=== PATIENT | female | born 1985 ===

== ENCOUNTER → 2018-03-22 | Outpatient (CLI) | payer OTHER ==
--- NOTE | 2018-03-22 08:42 | RADIOLOGY IMAGING REPORT ---
FACILITY: [facility] PATIENT NAME: Lulu Lin : 1985 MR: [id number] V: [id number] EXAM DATE: ORDERING PHYSICIAN: BARBIE MEZA TECHNOLOGIST: Location: [facility] - [place] Patient: Lulu Lin : 1985 Visit/Account:[id number] Date of Sevice: 03/22/2018 ABD SINGLE ORGAN/QUAD/FOLLOWUP HISTORY: Atypical umbilical bulge COMPARISON: None. FINDINGS: By history the patient is at her 26 week gestation. There are two hypoechoic masses projecting from the anterior aspect of the of the uterus one measuring 4.2 x 3.2 x 5.3 cm which appears to represent a fibroid which projects anteriorly to within 2.3 mm of the skin surface. The second is just to the left midline measuring 3 x 2.2 x 2.8 cm. The second has two central hypoechoic regions which may be cystic. IMPRESSION: Two hypoechoic masses project anteriorly from the uterus one to the right of the umbilicus measuring up to 5.3 cm and one to the left measuring up to 3 cm likely representing fibroids. Report Dictated By: Luba Solomon MD at 03/22/2018 8:30 AM Report E-Signed By: Luba Solomon MD at 03/22/2018 8:38 AM WSN:NARINDER
== END ==
LOC: US 06:56
PROVIDERS: ATTEND Surgery
DX: D25.9 Leiomyoma of uterus, unspecified (principal); Z3A.26 26 weeks gestation of pregnancy
CPT/HCPCS: 76705

== ENCOUNTER 2018-06-05 01:47 | Inpatient (IN) | payer OTHER ==
[~2018-06-05] VITALS: Ht 162.6 cm; Wt 74.8 kg
[2018-06-05] VITALS (15 sets, daily range): BP systolic 99–137; BP diastolic 42–83; Ht 162.6 cm; Wt 74.8 kg
--- NOTE | 2018-06-05 03:48 | History & Physical ---
History of Present Illness EDC per LMP: Jun 26, 2018 Estimated Gestational Age: 37.0 Chief Complaint Contractions History of Present Illness 32yo at 37w0d presents for contraction pain. She reports UCx started 06/04/18 in the afternoon and worsening since 0100 today. She denies LOF/VB. +FM. No preeclampsia symptoms. PNR reviewed. c/b uterine fibroid. PNC by [facility]. History Patient's Blood Type: B Positive Rubella Status: Immune Group B Strep Screen: Negative Obstetrical History: G1: SAB G2: Current Past Medical History: PMH: None PSH: None Allergies: Coded Allergies: No Known Drug Allergies (Unverified , 06/05/18) Social History: No T/E/D. Med Rec Home Meds No Active Prescriptions or Reported Meds Review of Systems Constitutional: No Fever Neurological: No Syncope Eyes: No Vision Change ENT: No Hearing Loss Cardiovascular: No Chest Pain Respiratory: No Shortness of Breath Gastrointestinal: No Nausea, No Vomiting, No Diarrhea Genitourinary: No Dysuria Musculoskeletal: No Pain Psychiatric: No Depression, No Anxiety Exam General Exam Vital Signs VS reviewed General Apperance: Alert/Awake/No Acute Distress Neuro: No Gross deficits Eyes: Normal Extraocular Movement & Vison Cardiovascular: Regular Rate and Rhythm Respiratory: No Respiratory Distress, Clear to Auscultation Abdomen: Gravid - Non-Tender Musculoskeletal: No Weakness/Pain Extremities: No Cyanosis,Clubbing or Edema Integumentary: Skin Intact without Lesions or Rash Psychological: Alert & Oriented X3, Appropriate Mood & Affect Cervical Dialation: 2 Cervical Effacement (%): 50 Cervical Consistency: Moderate Cervical Position: Posterior Station: -1 Presentation: Vertex Uterine Contractions(Q min): 2 Uterine Contraction Strength: Strong UC Resting Tone: Soft Fetus Feeling Movement?: Yes FHT Category: I Assessment and Plan Problems: (1) Uterine contractions during Assessment & Plan: 32yo at 37w0d presents with UCx. Upon admission, her contractions are every 3-4 minutes. Unsure if this is labor or not, but will monitor for cervical change. (2) Uterine fibroid during , antepartum Assessment & Plan: 4cm at last look according to record. (3) 37 weeks gestation of ERNA BIRMINGHAM MD Jun 05, 2018 03:48
[2018-06-05] MEDS ORDERED: ceFAZolin(*) 2GM/D5W 50ML 50 ML IVPB ONE (07:02)
[2018-06-05] MEDS ORDERED: LIDOCAINE/SOD BICARB 8.4% SYR ONE (07:02)
[2018-06-05] MEDS ORDERED: LR(*) 1000 ML BAG 1,000 ML IV SCH (07:02)
[2018-06-05] MEDS ORDERED: METOCLOPRAMIDE 10 MG/2 ML SDV IVP ONE (07:05)
[2018-06-05] MEDS ORDERED: FAMOTIDINE 20 MG/50 ML PREMIX IVPB ONE (07:05)
[2018-06-05] MEDS ORDERED: CITRIC ACID/SOD CITRATE 30 ML PO ONE (07:05)
[2018-06-05] MEDS ORDERED: MORPHINE PF 5 MG/10 ML AMP ONE (07:18)
[2018-06-05] MEDS ORDERED: fentaNYL CITR 100 MCG/2 ML AMP ONE (07:18)
[2018-06-05 07:21] LABS: PLATELET COUNT, AUTOMATED 199 K/uL (150-450)
[2018-06-05] MEDS ORDERED: DEXAMETHASONE SOD 4 MG/ML VIAL ONE ×2 (07:23→07:24)
[2018-06-05] MEDS ORDERED: OXYTOCIN 10 UNIT/ML SDV ONE ×4 (07:23)
[2018-06-05] MEDS ORDERED: NS 0.9% 20 ML SDV 20 ML ONE ×2 (07:28)
[2018-06-05] MEDS ORDERED: ONDANSETRON 4 MG/2 ML VIAL ONE (07:30)
--- NOTE | 2018-06-05 07:34 | Labor Progress Note ---
Labor Subjective Progress Notes Subjective She is still having painful contractions. Labor Objective Vital Signs VS reviewed Cervical Dialation: 4 Fetus FHT Category: I General Exam General Appearance: Alert/Awake/No Acute Distress Abdomen: Gravid - Non-Tender Psychological: Alert & Oriented X3, Appropriate Mood & Affect Other Result Diagram: 06/05/18 0715 Assessment and Plan Problems: (1) Breech presentation Assessment & Plan: Pt changed her cervix with 4cm. Exam revealed -3 station. Ultrasound reveals breech presentation. Recommended delivery. We discussed R/B/A with the patient. Her questions were addressed. Will proceed to the OR. Ancef preoperatively. (2) Uterine fibroid during , antepartum Assessment & Plan: 4cm at last look according to record. (3) 37 weeks gestation of Problem Qualifiers (1) Breech presentation: Fetus number: single or unspecified fetus Qualified Codes: O32.1XX0 - Maternal care for breech presentation, not applicable or unspecified ERNA BIRMINGHAM MD Jun 05, 2018 07:34
--- NOTE | 2018-06-05 08:52 | Post Operative Note ---
Operative Note - [employer] Operative Day Date: Jun 05, 2018 Physicians Surgeon: Ankur Anesthesia: Spinal, Ed Eufemia Diagnosis Pre-Op Diagnosis: IUP at 37wks in spontaneous labor with breech presentation Post-Op Diagnosis: Same Female at 0817hrs, 2472g (5#7.2oz), Apgars 8/9 Procedure Findings: 5cm pedunculated fibroid on anterior fundal wall Procedure(s): PLTCD Fluids Fluids: IVF: 1700cc UOP: 750cc Estimated Blood Loss: 500cc ERNA BIRMINGHAM MD Jun 05, 2018 08:52
[2018-06-05] MEDS ORDERED: OXYTOCIN 30 UNIT/LR 500 ML 500 ML IV PRN (08:58)
[2018-06-05] MEDS ORDERED: MAGNESIUM HYDROXIDE* 30ML UDCP PO PRN (09:00)
[2018-06-05] MEDS: FAMOTIDINE 20 MG TAB PO SCH ×2 (09:00→21:48)
[2018-06-05] MEDS ORDERED: ACETAMINOPHEN 325 MG TAB PO PRN (09:00)
[2018-06-05] MEDS ORDERED: LANOLIN OINT 7 GM TUBE TP PRN (09:00)
[2018-06-05] MEDS ORDERED: SIMETHICONE 80 MG CHEW CHEW PRN (09:00)
[2018-06-05] MEDS ORDERED: INFLUENZA VIRUS VAC 0.5ML SYR IM ONE (09:00)
[2018-06-05] MEDS: DOCUSATE CALCIUM 240 MG CAP PO SCH ×2 (09:00→21:48)
[2018-06-05] MEDS ORDERED: PROMETHAZINE 25 MG/ML 1 ML AMP IVP PRN (09:00)
[2018-06-05] MEDS ORDERED: IBUP800T37 PO (09:01)
[2018-06-05] MEDS ORDERED: OXYC-865 PO (09:01)
[2018-06-05] MEDS: ONDANSETRON 4 MG/2 ML VIAL IV PRN ×2 (09:26→15:57)
[2018-06-05] MEDS: KETOROLAC 30 MG/ML VIAL IVP SCH ×3 (09:26→21:48)
--- NOTE | 2018-06-05 09:29 | Anesthesia OB Pre-Anes Eval ---
History of Present Illness EDC: Jun 26, 2018 : 2 Para: 0 Result Diagram: 06/05/18 0715 Height (Inches): 64.00 Weight (Pounds): 165 BMI Calculated: 28.32 Past Medical History Medical History: no pertinent history Surgical History: no surgical history Attended Childbirth Classes?: No Hx Anesthesia Reactions: No Hx Family Anesthesia Reaction: No Home Meds Active Scripts Oxycodone Hcl/Acetaminophen (PERCOCET 5-325 MG TABLET) 1 Each Tablet, 1 TAB PO Q4-6H PRN for pain, #30 TAB 0 Refills Prov:ERNA BIRMINGHAM MD 06/05/18 Allergies: Coded Allergies: No Known Drug Allergies (Unverified , 06/05/18) Anesthesia OB ROS Eyes ROS: other (did not ask) Airway Class: ll GI ROS: clear liquids ASA Classification: 2, E Assessment and Plan Anesthesia Plan: SAB Assessment: spinal explained, risks and complications discussed. permit signed. questions invited Anesthesia Stop Day: Jun 05, 2018 Anesthesia Stop Time: 08:55 Condition n/v in pacu. Zofran repeated. bp stable. no other problems noted. ERIKA GARCIA CRNA Jun 05, 2018 09:29
[2018-06-05] MEDS ORDERED: NALBUPHINE HCL 10 MG/ML AMP IVP PRN (10:30)
[2018-06-05] MEDS: DLR(*) 1000 ML BAG 1,000 ML IV PRN ×2 (10:54→17:15)
[2018-06-06] VITALS: BP 107/61
[2018-06-06] MEDS: DLR(*) 1000 ML BAG 1,000 ML IV PRN (01:03)
[2018-06-06] MEDS: IBUPROFEN 800 MG TAB PO SCH ×3 (03:44→19:48)
[2018-06-06 03:46] VITALS: BP 118/64
[2018-06-06 06:04] LABS: PLATELET COUNT, AUTOMATED 180 K/uL (150-450)
[2018-06-06 08:20] VITALS: BP 110/65
[2018-06-06] MEDS: FAMOTIDINE 20 MG TAB PO SCH ×2 (08:22→20:44)
[2018-06-06] MEDS: DOCUSATE CALCIUM 240 MG CAP PO SCH ×2 (08:22→20:44)
[2018-06-06] MEDS ORDERED: MEASLES,MUMP,RUBELLA VAC 0.5ML SUBQ ONE (09:00)
[2018-06-06] MEDS ORDERED: DIPHTH/TETANUS/ACEL. PERTUSSIS IM ONLY ONE (09:00)
--- NOTE | 2018-06-06 09:07 | OB/GYN Progress Note ---
OB Subjective Progress Notes Subjective Doing well. Ambulating and voiding well. Pain well controlled. Bleeding light. Has not been up to the shower yet. GI: NEG Nausea : Voiding Well Pain: Mild OB Objective Physical Exam Vital Signs Date Time Temp Pulse Resp B/P (MAP) Pulse Ox O2 Delivery O2 Flow Rate FiO2 06/06/18 08:20 99.2 104 16 110/65 (80) 96 Room Air Intake and Output 06/06/18 07:00 Intake Total 5520 ml Output Total 2025 ml Balance 3495 ml Intake Oral 640 ml IV Total 4880 ml Output Urine Total 1525 ml Estimated Blood Loss 500 ml General Appearance: Alert/Awake/No Acute Distress Neurological: No Gross deficits Eyes: Normal Extraocular Movement & Vison Cardiovascular: Normal Rhythm & Peripheral Pulses Respiratory: No Respiratory Distress Abdomen: Soft, Non-Tender, Non-Distended, Fundus Firm, Non-Tender Incision: Clean, Dry, Intact, Dressing (removed) Extremities: No Cyanosis,Clubbing or Edema Integumentary: Skin Intact without Lesions or Rash Psychological: Alert & Oriented X3, Appropriate Mood & Affect Result Diagram: 06/06/18 0554 Assessment and 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
--- NOTE | 2018-06-06 14:19 | Anesthesia Post Eval Note ---
Anesthesia Post Eval Note stable. Pt able to participate in Eval: Yes Cardiovascular Status: Satisfactory Respiratory Status: Satisfactory Pain Managment: Satisfactory PO Nausea/Vomiting: Satisfactory Mental Status: Satisfactory Post-Op Hydration Status: Satisfactory Anesthesia Type: SAB Anesthesia Tolerance: n/v earlier has now subsided. no further problems noted. this eval was done on 06/05/2018 at 1905hrs. ERIKA GARCIA CRNA Jun 06, 2018 14:19
[2018-06-06 16:50] VITALS: BP 118/69
[2018-06-06 19:30] VITALS: BP 106/62
[2018-06-06 23:00] VITALS: BP 110/72
[2018-06-07 03:05] VITALS: BP 104/56
[2018-06-07] MEDS: IBUPROFEN 800 MG TAB PO SCH ×2 (04:22→12:30)
[2018-06-07] MEDS: FAMOTIDINE 20 MG TAB PO SCH (09:27)
[2018-06-07] MEDS: DOCUSATE CALCIUM 240 MG CAP PO SCH (09:27)
[2018-06-07 09:30] VITALS: BP 110/66
--- NOTE | 2018-06-07 11:54 | OB/GYN Progress Note ---
OB Subjective Progress Notes Subjective Doing well. Pain controlled and only a 2/10 if moves. Only taking IBU for pain. Voiding well. GI: NEG Nausea : Voiding Well Pain: Mild OB Objective Physical Exam Vital Signs Date Time Temp Pulse Resp B/P (MAP) Pulse Ox O2 Delivery O2 Flow Rate FiO2 06/07/18 03:05 98.6 80 24 104/56 (72) 93 Room Air Intake and Output 06/07/18 07:00 Intake Total 1660 ml Output Total 1000 ml Balance 660 ml Intake Oral 710 ml IV Total 950 ml Output Urine Total 1000 ml # Voids 1 General Appearance: Alert/Awake/No Acute Distress Neurological: No Gross deficits Eyes: Normal Extraocular Movement & Vison Cardiovascular: Normal Rhythm & Peripheral Pulses Respiratory: No Respiratory Distress Abdomen: Soft, Non-Tender, Non-Distended, Fundus Firm, Non-Tender Incision: Clean, Dry, Intact Extremities: No Cyanosis,Clubbing or Edema Integumentary: Skin Intact without Lesions or Rash Psychological: Alert & Oriented X3, Appropriate Mood & Affect Result Diagram: 06/06/18 0554 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 Activity restrictions reviewed. (2) Other specified aftercare following surgery (3) Breech presentation Problem Qualifiers (1) Breech presentation: Fetus number: single or unspecified fetus Qualified Codes: O32.1XX0 - Maternal care for breech presentation, not applicable or unspecified CIERRA HERNANDEZ MD Jun 07, 2018 11:54
--- NOTE | 2018-06-07 11:55 | OB/GYN Discharge Summary ---
Discharge Summary Reason for Hosp/Final Diag: (1) care and examination immediately after delivery Hospital Course & Plan: Reviewed precautions and instructions for home. Activity restrictions reviewed. (2) Other specified aftercare following surgery (3) Breech presentation Lates Vital Signs Vital Signs Date Time Temp Pulse Resp B/P (MAP) Pulse Ox O2 Delivery O2 Flow Rate FiO2 06/07/18 03:05 98.6 80 24 104/56 (72) 93 Room Air Weight (Pounds): 165 Result Diagram: 06/06/18 0554 Condition: Improved Discharge: Home, Self Group Home Meds Active Scripts Oxycodone Hcl/Acetaminophen (PERCOCET 5-325 MG TABLET) 1 Each Tablet, 1 TAB PO Q4-6H PRN for pain, #30 TAB 0 Refills Prov:ERNA BIRMINGHAM MD 06/05/18 Follow up Referrals: DIALS INSPECTOR - In Two Weeks @ [facility] Follow up with: Dr. Shearer [phone] Follow up in: 6 wks PP or PO Discharge Diet: As Tolerates Discharge Activity: As Tolerates, No Heavy Lifting x 6 wks, No Heavy Lifting > 10lb, Pelvic Rest Copies to: CIERRA SHEARER MD ; Problem Qualifiers (1) Breech presentation: Fetus number: single or unspecified fetus Qualified Codes: O32.1XX0 - Maternal care for breech presentation, not applicable or unspecified CIERRA SHEARER MD Jun 07, 2018 11:55
--- NOTE | 2018-06-13 23:37 | OPERATIVE REPORT 1 ---
EVENT DATE: June 05, 2018 SURGEON: Deya Pascual MD ANESTHESIA: Spinal by Gelacio Fall CRNA PREOPERATIVE DIAGNOSIS Intrauterine at 37 weeks zero days, in spontaneous labor with breech presentation. POSTOPERATIVE DIAGNOSES 1. Intrauterine at 37 weeks zero days, in spontaneous labor with breech presentation. 2. Delivery of a viable female infant at 0817 hours, weighing 2472 g or 5 pounds 7.2 ounces, with Apgars of 8 at one minute and 9 at five minutes. FINDINGS A 5 cm pedunculated fibroid on the anterior fundal wall. PROCEDURE PERFORMED Primary low transverse delivery. INTRAVENOUS FLUIDS 1700 mL URINE OUTPUT 750 mL ESTIMATED BLOOD LOSS 500 mL INDICATIONS FOR PROCEDURE This patient is a 32-year-old G2, P0-0-1-0, who presented to Labor and Delivery at 37 weeks zero days with complaints of regular uterine contractions. She was noted to change from 2 cm to 4 cm. However, at the time of her second evaluation, was noted to be in the breech presentation. We discussed the recommendation to proceed with a primary delivery, and the patient did elect to proceed. We discussed the risks, benefits, and alternatives, and all her questions were addressed prior to the procedure. Please see her history and physical and labor notes for full details. DESCRIPTION OF PROCEDURE The patient was properly identified and taken to the operating room. She was administered a spinal anesthetic and placed in the supine position with a leftward tilt. A Maldonado catheter was then placed. She was then prepped and draped in the usual fashion for a lower abdominal surgery. After adequate anesthesia was confirmed, a Pfannenstiel incision was made over the lower abdomen and carried down with electrocautery to the level of the rectus fascia. The fascia was then nicked in the midline. The incision was extended in a blunt fashion. The rectus fascia was from the underlying rectus muscle in a blunt fashion to accommodate delivery of the . The peritoneum was then identified and entered in a blunt fashion, and the incision was extended. A bladder blade was then placed with visualization of the vesicouterine peritoneum which was far away from the lower uterine segment. A scalpel was then utilized to make a transverse incision on the uterus. This was extended in a cephalocaudad blunt fashion. The was noted to be in the breezy breech presentation; therefore, the buttocks were delivered, followed by careful delivery of either leg. The was then further delivered up to the level of the axilla when the right arm was brought across the anterior chest to deliver that arm. The was then rotated in 180 degrees, and the left arm was brought across the anterior chest to be delivered. The infant's vertex then was easily delivered without any difficulty. The had spontaneous cry and spontaneous movement of all four extremities. The oropharynx and nasopharynx were bulb suctioned. After approximately 30 seconds, the cord was clamped times two and cut, and the infant was passed to nursing personnel in good condition. Cord blood was then obtained, and Pitocin was started in the IV fluid to help firm the uterus. The placenta was then removed manually and passed off the table. The uterus was exteriorized, at which time a 4 to 5 cm pedunculated myoma was noted on the anterior fundal aspect of the uterus. This did not appear to be degenerating and was not in the way of the surgery. The uterine cavity was cleared of any remaining clots or debris. The uterine incision was then reapproximated using a 4-0 Vicryl in a running locking fashion, working from one apex to the next. An 0 Monocryl was then utilized to imbricate the incision in a second layer. Hemostasis was assured at this time, and the uterus was replaced in the abdominal cavity. Bilateral tubes and ovaries were visualized and appeared within normal limits. The pericolic gutters were then cleared of clot and debris. The uterine incision was again inspected and noted to be hemostatic. The peritoneum was reapproximated using a 2-0 Monocryl, followed by reapproximation of the rectus muscle in a loose fashion. Copious irrigation of the rectus muscle was then performed, and hemostasis was assured. The rectus fascia was then reapproximated using a 0 Vicryl, working from one apex to the next. The subcutaneous tissue was copiously irrigated and made hemostatic with electrocautery. The subcutaneous tissue was reapproximated with a 2-0 Monocryl, followed by closure of the skin with Insorb lilibeth. A PermaFoam dressing was placed, followed by a fluff and Medipore tape for a pressure dressing. The patient tolerated this procedure well and recovered in the Labor and Delivery recovery area with her baby. All sponge, needle, and instrument counts were correct at the end of this procedure. JIAD
== END 2018-06-07 13:15 | disposition home or self-care (01) | DRG 766 ==
LOC: UNDOADMIN 01:47 → OB 01:47
PROVIDERS: ADMIT Obstetrics & Gynecology; ATTEND Obstetrics & Gynecology
PROC: 10D00Z1 Extraction of Products of Conception, Low, Open Approach (ICD-10-PCS; principal; 2018-06-05 07:45)
DX: O32.1XX0 Maternal care for breech presentation, not applicable or unspecified (principal); O34.13 Maternal care for benign tumor of corpus uteri, third trimester; Z3A.37 37 weeks gestation of pregnancy; Z37.0 Single live birth
CPT/HCPCS: 36415; 85025; 86850; 86900; 86901; J0690; J1100; J1885; J2270; J2300; J2405; J2550; J2590; J2765; J3010; J3490; J7050; J7120